=== PATIENT | female | born 2000 | race Caucasian/White ===

== ENCOUNTER 2024-09-12 20:40 | Emergency (ER) | payer BC ==
[2024-09-12 21:15] LABS: BASOPHILS PERCENT AUTO 0.1 % (0.0-1.0); EOSINOPHILS PERCENT AUTO 0.3 % (0.0-6.0); HEMATOCRIT 37.2 % (37.0-47.0); HEMOGLOBIN 13.1 gm/dl (12.0-16.0); IMMATURE GRAN ABSOLUTE AUTO 0.02 K/mm3 (0.00-0.05); IMMATURE GRAN PERCENT AUTO 0.2 % (0.0-0.4); LYMPHOCYTES ABSOLUTE AUTO 0.3 K/mm3 (1.0-4.8); LYMPHOCYTES PERCENT AUTO 3.4 % (24.0-44.0); MEAN CORPUSCULAR HEMOGLOBIN 31.6 pg (28.0-32.0); MEAN CORPUSCULAR HGB CONC 35.2 g/dl (32.0-36.0); MEAN CORPUSCULAR VOLUME 89.9 fl (83.0-99.0); MEAN PLATELET VOLUME 10.1 fl (9.4-12.3); MONOCYTES ABSOLUTE AUTO 0.3 K/mm3 (0.0-0.8); MONOCYTES PERCENT AUTO 3.1 % (0.0-8.0); NEUTROPHILS ABSOLUTE AUTO 8.3 K/mm3 (1.8-7.7); NEUTROPHILS PERCENT AUTO 92.9 % (41.0-71.0); PLATELET COUNT,PLT 203 K/mm3 (150-400); RED BLOOD CELL COUNT 4.14 M/mm3 (4.10-5.30); WHITE BLOOD CELL COUNT,WBC 8.95 K/mm3 (3.9-11.3)
[2024-09-12] MEDS: Metoclopramide 10 MG/2 ML SDV IVPUSH ONE (21:15)
[2024-09-12] MEDS: Sodium Chloride 0.9% 1,000 ML IV ONE ×2 (21:15→22:32)
[2024-09-12 21:36] LABS: ALBUMIN 3.4 g/dl (3.4-5.0); ANION GAP 17.2 (5-15); BILIRUBIN TOTAL 0.8 mg/dL (0.2-1.0); CALCIUM 8.7 mg/dL (8.5-10.1); CREATININE 0.5 mg/dL (0.55-1.02); EST CRCL DRUG DOSING (CG) 137.9 mL/min; MAGNESIUM 1.4 mg/dL (1.8-2.4); POTASSIUM,K 3.2 mEq/L (3.5-5.1); PROTEIN TOTAL,TP 6.7 g/dl (6.4-8.2)
[2024-09-12] MEDS: Magnesium Sulf/Wat 2 GM/50 mL 2 GM/50 ML BAG IV ONE (21:55)
[2024-09-12] MEDS: Potassium Chloride 20 MEQ Tab.ER PO ONE (21:56)
== END 2024-09-13 00:06 | disposition home or self-care (01) ==
LOC: JD.ED 20:40
DX: O21.9 Vomiting of pregnancy, unspecified (principal); O99.891 Other specified diseases and conditions complicating pregnancy; R19.7 Diarrhea, unspecified; Z3A.18 18 weeks gestation of pregnancy
CPT/HCPCS: 36415; 76815; 80053; 83735; 85025; 96361; 96365; 96366; 96375; 99284; A9270; J2765; J3475; J7030; 99283

== ENCOUNTER 2025-02-13 09:49 | Inpatient (IN) | payer BC ==
[2025-02-13] MEDS ORDERED: Nalbuphine 10 MG/1 ML Vial IVPUSH PRN (17:09)
[2025-02-13] MEDS ORDERED: Sodium Chloride 0.9% 10 ML Syringe FLUSH PRN (17:09)
[2025-02-13] MEDS ORDERED: Oxytocin/0.9 % Sodium Chloride 30 UNIT/500 ML BAG IV SCH (17:15)
[2025-02-13 17:44] LABS: BASOPHILS ABSOLUTE AUTO 0.0 K/mm3 (0.0-0.2); BASOPHILS PERCENT AUTO 0.2 % (0.0-1.0); EOSINOPHILS ABSOLUTE AUTO 0.0 K/mm3 (0.0-0.4); EOSINOPHILS PERCENT AUTO 0.2 % (0.0-6.0); IMMATURE GRAN ABSOLUTE AUTO 0.02 K/mm3 (0.00-0.05); IMMATURE GRAN PERCENT AUTO 0.2 % (0.0-0.4); LYMPHOCYTES ABSOLUTE AUTO 1.8 K/mm3 (1.0-4.8); LYMPHOCYTES PERCENT AUTO 19.2 % (24.0-44.0); MEAN PLATELET VOLUME 11.4 fl (9.4-12.3); MONOCYTES ABSOLUTE AUTO 0.6 K/mm3 (0.0-0.8); MONOCYTES PERCENT AUTO 6.8 % (0.0-8.0); NEUTROPHILS ABSOLUTE AUTO 7.0 K/mm3 (1.8-7.7); NEUTROPHILS PERCENT AUTO 73.4 % (41.0-71.0); NRBC ABSOLUTE 0.00 (0.00-0.02); NRBC PERCENT 0.0 % (0.0-0.2); PLATELET COUNT,PLT 253 K/mm3 (150-400); RED BLOOD CELL COUNT 3.78 M/mm3 (4.10-5.30); WHITE BLOOD CELL COUNT,WBC 9.47 K/mm3 (3.9-11.3)
[2025-02-13] MEDS: Lactated Ringers 1,000 ML IV SCH (17:55)
[2025-02-13] MEDS: Oxytocin/0.9 % Sodium Chloride 30 UNIT/500 ML BAG IV SCH (17:56)
[2025-02-13] MEDS ORDERED: fentaNYL 100 MCG/2 ML SDV EPIDUR PRN (18:11)
[2025-02-13] MEDS ORDERED: diphenhydrAMINE 50 MG/ML SDV IVPUSH PRN (18:11)
[2025-02-13] MEDS ORDERED: Sodium Chloride 0.9% 10 ML Syringe FLUSH SCH (21:00)
[2025-02-14] MEDS: Bupivacaine/fentaNYL/NS 100 ML Bag EPIDUR PRN (05:40)
[2025-02-14] MEDS: Ondansetron 4 MG/2 ML SDV IVPUSH PRN (06:25)
[2025-02-14] MEDS: ePHEDrine 50 MG/ML SDV IVPUSH PRN (08:39)
[2025-02-14] MEDS ORDERED: dexmedeTOMIDine HCl 200 MCG/2 ML SDV ONE (08:51)
[2025-02-14] MEDS ORDERED: Ondansetron 4 MG/2 ML SDV ONE (08:51)
[2025-02-14] MEDS ORDERED: Lidocaine 2% with EPINEPHrine 1:200,000 20 ML SDV ONE (08:51)
[2025-02-14] MEDS ORDERED: Phenylephrine 1% 10 MG/ML SDV ONE (08:51)
[2025-02-14] MEDS: Citric Acid/Sodium Citrate Solution 30 ML Cup PO ONE (08:58)
[2025-02-14] MEDS ORDERED: fentaNYL 100 MCG/2 ML SDV ONE ×2 (09:36→09:49)
[2025-02-14] MEDS ORDERED: Propofol 200 MG/20 ML SDV ONE (09:43)
[2025-02-14] MEDS ORDERED: Ketamine 500 mg/10 ML MDV ONE (09:48)
[2025-02-14] MEDS ORDERED: Ketorolac 30 MG/ML SDV ONE (10:10)
[2025-02-14] MEDS ORDERED: fentaNYL 100 MCG/2 ML SDV IVPUSH PRN (10:31)
[2025-02-14] MEDS ORDERED: diphenhydrAMINE 50 MG/ML SDV IVPUSH PRN ×2 (10:31→11:47)
[2025-02-14] MEDS ORDERED: ePHEDrine 50 MG/ML SDV ONE (10:43)
[2025-02-14] MEDS ORDERED: Naloxone 0.4 MG/ML SDV IVPUSH PRN (11:47)
[2025-02-14] MEDS ORDERED: Ondansetron 4 MG/2 ML SDV IV PRN (11:47)
[2025-02-14] MEDS ORDERED: Sodium Chloride 0.9% 10 ML Syringe FLUSH PRN (11:47)
[2025-02-14] MEDS ORDERED: ePHEDrine 50 MG/ML SDV IVPUSH PRN (11:47)
[2025-02-14] MEDS: Lactated Ringers 500 ML IV ONE (11:55)
[2025-02-14 13:31] LABS: BASOPHILS ABSOLUTE AUTO 0.0 K/mm3 (0.0-0.2); BASOPHILS PERCENT AUTO 0.1 % (0.0-1.0); EOSINOPHILS ABSOLUTE AUTO 0.0 K/mm3 (0.0-0.4); EOSINOPHILS PERCENT AUTO 0.0 % (0.0-6.0); IMMATURE GRAN ABSOLUTE AUTO 0.06 K/mm3 (0.00-0.05); IMMATURE GRAN PERCENT AUTO 0.4 % (0.0-0.4); LYMPHOCYTES ABSOLUTE AUTO 1.4 K/mm3 (1.0-4.8); LYMPHOCYTES PERCENT AUTO 10.0 % (24.0-44.0); MEAN PLATELET VOLUME 11.5 fl (9.4-12.3); MONOCYTES ABSOLUTE AUTO 0.7 K/mm3 (0.0-0.8); MONOCYTES PERCENT AUTO 4.6 % (0.0-8.0); NEUTROPHILS ABSOLUTE AUTO 12.2 K/mm3 (1.8-7.7); NEUTROPHILS PERCENT AUTO 84.9 % (41.0-71.0); NRBC ABSOLUTE 0.00 (0.00-0.02); NRBC PERCENT 0.0 % (0.0-0.2); PLATELET COUNT,PLT 192 K/mm3 (150-400); RED BLOOD CELL COUNT 2.81 M/mm3 (4.10-5.30); WHITE BLOOD CELL COUNT,WBC 14.36 K/mm3 (3.9-11.3)
[2025-02-14] MEDS ORDERED: diphenhydrAMINE 50 MG/ML SDV IV ONE (13:45)
[2025-02-14 13:59] LABS: A/G RATIO 0.6 (1-2); ALANINE AMINOTRANSFERASE,ALT 13.0 U/L (14-59); ASPARTATE AMNIOTRANSFERASE,AST 16.0 U/L (15-37); BILIRUBIN TOTAL 0.2 mg/dL (0.2-1.0); BLOOD UREA NITROGEN,BUN 6.0 mg/dL (7-18); CARBON DIOXIDE,CO2 21.0 mEq/L (21-32); CHLORIDE,CL 106.0 mEq/L (98-107); CREATININE 0.4 mg/dL (0.55-1.02); EST CRCL DRUG DOSING (CG) 195.15 mL/min; ESTIMATED GFR 142.0 mL/min (>60); GLUCOSE RANDOM 116.0 mg/dL (70-99); POTASSIUM,K 3.5 mEq/L (3.5-5.1); PROTEIN TOTAL,TP 4.6 g/dl (6.4-8.2); SODIUM,NA 137.0 mEq/L (136-145)
[2025-02-14] MEDS: Ketorolac 30 MG/ML SDV IVPUSH SCH (16:43)
[2025-02-15 05:31] LABS: MEAN PLATELET VOLUME 11.1 fl (9.4-12.3); NRBC ABSOLUTE 0.00 (0.00-0.02); NRBC PERCENT 0.0 % (0.0-0.2); PLATELET COUNT,PLT 184 K/mm3 (150-400); RED BLOOD CELL COUNT 2.80 M/mm3 (4.10-5.30); WHITE BLOOD CELL COUNT,WBC 12.01 K/mm3 (3.9-11.3)
== END 2025-02-16 14:10 | disposition home or self-care (01) | DRG 540 ==
LOC: JD.OB 09:49 → OBSVTOIN 02-14 09:49 → JD.OB 02-14 09:50
PROVIDERS: ADMIT Obstetrics & Gynecology; ATTEND Obstetrics & Gynecology
PROC: 10907ZC Drainage of Amniotic Fluid, Therapeutic from Products of Conception, Via Natural or Artificial Opening (ICD-10-PCS; 2025-02-14)
PROC: 3E033VJ Introduction of Other Hormone into Peripheral Vein, Percutaneous Approach (ICD-10-PCS; 2025-02-14)
PROC: 10H07YZ Insertion of Other Device into Products of Conception, Via Natural or Artificial Opening (ICD-10-PCS; 2025-02-14)
PROC: 30233N1 Transfusion of Nonautologous Red Blood Cells into Peripheral Vein, Percutaneous Approach (ICD-10-PCS; 2025-02-14)
PROC: 10D00Z1 Extraction of Products of Conception, Low, Open Approach (ICD-10-PCS; principal; 2025-02-14 09:45)
DX: O48.0 Post-term pregnancy (principal); Z3A.40 40 weeks gestation of pregnancy; Z37.0 Single live birth; O77.0 Labor and delivery complicated by meconium in amniotic fluid; O76 Abnormality in fetal heart rate and rhythm complicating labor and delivery; O90.81 Anemia of the puerperium; D62 Acute posthemorrhagic anemia; O64.0XX0 Obstructed labor due to incomplete rotation of fetal head, not applicable or unspecified
CPT/HCPCS: 01967; 01968; 36415; 36430; 51702; 59025; 80053; 85025; 85027; 86592; 86850; 86900; 86901; 86922; 99140; A9270-GY; J0456; J0665; J0690; J1885; J2004; J2371; J2405; J2704; J2765; J3010; J3490; J7030; J7050; J7120; J7121; J7999; P9016